=== PATIENT | male | born 1975 | race Caucasian/White ===

== ENCOUNTER 2017-06-14 23:47 | Emergency (ER) | payer OTHER ==
[2017-06-14 23:56] VITALS: BP 152/102
== END 2017-06-15 00:52 | disposition home or self-care (01) ==
LOC: ED 23:47
DX: J02.8 Acute pharyngitis due to other specified organisms (principal); I10 Essential (primary) hypertension; Z88.0 Allergy status to penicillin; Z91.013 Allergy to seafood
CPT/HCPCS: J1100

== ENCOUNTER 2018-10-08 17:52 | Emergency (ER) | payer OTHER ==
[~2018-10-08] VITALS: Ht 172.7 cm; Wt 115.7 kg
[2018-10-08 18:07] VITALS: Ht 172.7 cm; Wt 115.7 kg
[2018-10-08 18:43] LABS: BASOPHIL % 0.5 % (0-2); PLATELET COUNT 294 x10^3mcL (130-400)
[2018-10-08 18:51] LABS: CALCIUM 9.4 mg/dL (8.5-10.1); CARBON DIOXIDE 31.3 mmol/L (21-32); CHLORIDE SERUM 99 mmol/L (98-107); GFR1 > 60 mL/min; GLUCOSE SERUM 88 mg/dL (74-106); POTASSIUM SERUM 3.6 mmol/L (3.5-5.1); SODIUM SERUM 137 mmol/L (136-145)
[2018-10-08 18:55] LABS: ALBUMIN 4.4 g/dL (3.4-5.0); ALKALINE PHOSPHATASE 87 U/L (46-116); ALT/SGPT 38 U/L (16-63); AST/SGOT 28 U/L (15-37); BILIRUBIN TOTAL 0.71 mg/dL (0.20-1.00); LIPASE 141 IU/L (73-393)
[2018-10-08 18:59] LABS: TOTAL PROTEIN, SERUM 8.8 g/dL (6.4-8.2)
[2018-10-08 19:39] VITALS: BP 118/77
== END 2018-10-08 19:45 | disposition home or self-care (01) ==
LOC: ED 17:52
PROVIDERS: Emergency Medicine
DX: K59.00 Constipation, unspecified (principal); I10 Essential (primary) hypertension; Z88.0 Allergy status to penicillin; Z91.013 Allergy to seafood
CPT/HCPCS: 36415; J7030